=== PATIENT | female | born 1935 | race Hispanic/Latino ===

== ENCOUNTER 2022-01-10 10:03 | Outpatient (CLI) | payer BC | END 2022-01-10 10:04 | disposition home or self-care (01) | LOC: CSHLAB 10:03 | PROVIDERS: ATTEND Surgery | DX: Z20.822 Contact with and (suspected) exposure to COVID-19 (principal) | CPT/HCPCS: 87811 ==

== ENCOUNTER 2022-04-15 13:57 | Outpatient (CLI) | payer MEDICARE, BC | END 2022-04-15 13:58 | disposition home or self-care (01) | LOC: CSHRAD 13:57 | PROVIDERS: ATTEND Specialist | DX: R10.9 Unspecified abdominal pain (principal); K59.00 Constipation, unspecified; R91.8 Other nonspecific abnormal finding of lung field; J90 Pleural effusion, not elsewhere classified | CPT/HCPCS: 74019 ==

== ENCOUNTER 2022-04-16 11:35 | Emergency (ER) | payer MEDICARE, BC ==
[~2022-04-16 11:35] MED LIST: Iopamidol 300 61% 100 ML VIAL FS ONE
[2022-04-16] MEDS ORDERED: Fentanyl 100 MCG/2 ML VIAL ONE (12:17)
[2022-04-16 12:35] LABS: #Basophils 0.1 10x3/uL (0.0-0.2); #Eosinphils 0.6 10x3/uL (0.0-0.5); #Monocytes 0.9 10x3/uL (0.0-1.1); #Neutrophils 7.6 10x3/uL (1.5-8.4); %Basophils 0.5 % (0.0-2.0); %Eosinophils 4.6 % (0.0-6.0); %Lymphocytes 29.6 % (18.0-47.0); %Monocytes 7.1 % (0.0-10.0); Hemoglobin 15.4 g/dL (12.0-15.5); Mean Corpuscular HGB CONC 33.3 g/dL (32.0-36.0); Mean Corpuscular Hemoglobin 28.7 pg (27.0-33.0); Mean Corpuscular Volume 86.4 fl (81.6-98.3); Platelet Count 376 10x3/uL (150-450); RBC Distribution Width 14.7 % (11.5-14.5); Red Blood Cell (RBC) Count 5.36 10x6/uL (3.90-5.03); White Blood Cell (WBC) Count 13.2 10x3/uL (3.5-10.5)
[2022-04-16 12:50] LABS: ALT (SGPT) 12 U/L (8-55); AST (SGOT) 14 U/L (5-34); Alkaline Phosphatase 112 U/L (40-110); Anion Gap 13 mmol/L (10-20); BUN (Urea Nitrogen) 8 mg/dL (9.8-20.1); Bilirubin, Total 0.4 mg/dL (0.2-1.2); Calc. Creatinine Clearance 0 mL/min (70-130); Calcium 9.8 mg/dL (7.8-10.44); Carbon Dioxide 26 mmol/L (23-31); Chloride 105 mmol/L (98-107); Estimated GFR 84; Globulin 2.7 g/dL (2.4-3.5); Glucose 101 mg/dL (83-110); Lipase 16 U/L (8-78); Potassium 3.8 mmol/L (3.5-5.1); Protein, Total 6.7 g/dL (5.8-8.1); Sodium 140 mmol/L (136-145)
[2022-04-16] MEDS ORDERED: GoLYTELY 4,000 ml Bottle PO SCH (14:30)
== END 2022-04-16 14:40 | disposition home or self-care (01) ==
LOC: CSHERS 11:35
DX: R10.13 Epigastric pain (principal); C34.81 Malignant neoplasm of overlapping sites of right bronchus and lung; C91.10 Chronic lymphocytic leukemia of B-cell type not having achieved remission; Z79.899 Other long term (current) drug therapy
CPT/HCPCS: 36415; 74177; 80053; 82248; 83605; 83615; 83690; 84100; 84436; 84443; 84550; 85025; 96374; J3010; Q9967

== ENCOUNTER 2022-06-26 15:31 | Outpatient (CLI) | payer MEDICARE, BC | END 2022-06-26 15:32 | disposition home or self-care (01) | LOC: CSHRAD 15:31 | PROVIDERS: ATTEND Specialist | DX: M89.8X5 Other specified disorders of bone, thigh (principal); M16.12 Unilateral primary osteoarthritis, left hip ==

== ENCOUNTER 2022-12-11 21:20 | Observation (INO) | payer MEDICARE, BC ==
[2022-12-11] MEDS ORDERED: Ondansetron PF 4 MG/2 ML Vial ONE (22:29)
[2022-12-11] MEDS ORDERED: Morphine 4 MG/ML VIAL ONE (22:29)
[2022-12-11 23:17] LABS: #Eosinphils 0.6 10x3/uL (0.0-0.5); #Monocytes 0.2 10x3/uL (0.0-1.1); #Neutrophils 17.1 10x3/uL (1.5-8.4); %Basophils 0.1 % (0.0-2.0); %Eosinophils 3.2 % (0.0-6.0); %Lymphocytes 7.4 % (18.0-47.0); %Monocytes 1.1 % (0.0-10.0); %Neutrophils 87.3 % (40.0-75.0); Hematocrit 30.6 % (34.9-44.5); Hemoglobin 9.8 g/dL (12.0-15.5); Mean Corpuscular Hemoglobin 27.7 pg (27.0-33.0); Mean Corpuscular Volume 86.4 fl (81.6-98.3); Mean Platelet Volume 10.1 fl (7.4-10.4); Platelet Count 199 10x3/uL (150-450); RBC Distribution Width 19.1 % (11.5-14.5); Red Blood Cell (RBC) Count 3.54 10x6/uL (3.90-5.03); White Blood Cell (WBC) Count 19.5 10x3/uL (3.5-10.5)
[2022-12-11 23:27] LABS: Phosphorus 2.6 mg/dL (2.3-4.7)
[2022-12-11 23:29] LABS: ALT (SGPT) 7 U/L (8-55); AST (SGOT) 10 U/L (5-34); Albumin 2.3 g/dL (3.4-4.8); Alkaline Phosphatase 80 U/L (40-110); Anion Gap 9 mmol/L (10-20); BUN (Urea Nitrogen) 17 mg/dL (9.8-20.1); Bilirubin, Total 0.4 mg/dL (0.2-1.2); Calc. Creatinine Clearance 0 mL/min (70-130); Carbon Dioxide 32 mmol/L (23-31); Chloride 101 mmol/L (98-107); Estimated GFR 87; Glucose 114 mg/dL (83-110); Lipase 5 U/L (8-78); Magnesium 1.7 mg/dL (1.6-2.6); Potassium 3.9 mmol/L (3.5-5.1); Protein, Total 4.3 g/dL (5.8-8.1); Sodium 138 mmol/L (136-145)
[2022-12-12] MEDS ORDERED: Ondansetron PF 4 MG/2 ML Vial IVP PRN (03:17)
[2022-12-12] MEDS ORDERED: Bisacodyl 5 MG TAB PO PRN (03:17)
[2022-12-12] MEDS ORDERED: Calcium Carbonate 500 MG ChewTAB PO PRN (03:17)
[2022-12-12] MEDS ORDERED: HYDROcodone/Acetaminophen 5/325 mg Tablet PO PRN (03:17)
[2022-12-12] MEDS ORDERED: Acetaminophen 325 MG TAB PO PRN (03:17)
[2022-12-12] MEDS ORDERED: Sodium Chloride 0.9% 500 ML IV SCH (03:30)
[2022-12-12] MEDS ORDERED: Albumin 25% 100 ML ONE (05:37)
[2022-12-12] MEDS ORDERED: Morphine 2 MG/ML VIAL SLOW IVP PRN (06:40)
[2022-12-12 07:54] LABS: #Eosinphils 0.6 10x3/uL (0.0-0.5); #Monocytes 0.1 10x3/uL (0.0-1.1); #Neutrophils 15.6 10x3/uL (1.5-8.4); %Basophils 0.2 % (0.0-2.0); %Eosinophils 3.4 % (0.0-6.0); %Lymphocytes 7.3 % (18.0-47.0); %Monocytes 0.4 % (0.0-10.0); %Neutrophils 87.6 % (40.0-75.0); Hematocrit 30.5 % (34.9-44.5); Hemoglobin 9.7 g/dL (12.0-15.5); Mean Corpuscular HGB CONC 31.8 g/dL (32.0-36.0); Mean Corpuscular Hemoglobin 27.4 pg (27.0-33.0); Mean Corpuscular Volume 86.2 fl (81.6-98.3); Mean Platelet Volume 9.4 fl (7.4-10.4); Platelet Count 172 10x3/uL (150-450); Red Blood Cell (RBC) Count 3.54 10x6/uL (3.90-5.03); White Blood Cell (WBC) Count 17.9 10x3/uL (3.5-10.5)
[2022-12-12 08:07] LABS: Anion Gap 12 mmol/L (10-20); BUN (Urea Nitrogen) 14 mg/dL (9.8-20.1); Calc. Creatinine Clearance 0 mL/min (70-130); Calcium 8.4 mg/dL (7.8-10.44); Carbon Dioxide 30 mmol/L (23-31); Chloride 101 mmol/L (98-107); Estimated GFR 87; Glucose 82 mg/dL (83-110); Iron 65 ug/dL (50-170); Iron Binding Capacity, Total 89 mcg/dL (265-497); Potassium 3.9 mmol/L (3.5-5.1); Sodium 139 mmol/L (136-145)
[2022-12-12 08:58] VITALS: BMI 19.4
[2022-12-12] MEDS ORDERED: Icosapent Ethyl 1 GM CAPSULE PO SCH (09:00)
[2022-12-12] MEDS ORDERED: Senokot S 8.6-50 MG TAB PO SCH (09:00)
[2022-12-12] MEDS ORDERED: Multivitamin W/ Minerals 1 TAB PO SCH (09:00)
[2022-12-12] MEDS: Albumin 25% 25 GM/100 ML BOT IVPB SCH ×2 (09:22→09:26)
[2022-12-12] MEDS ORDERED: Morphine 4 MG/ML VIAL SLOW IVP SCH (10:00)
[2022-12-12] MEDS ORDERED: Magnesium 2 GM/50 ML(in water) 2 GM in Premix Bag 1 BAG IVPB SCH (10:45)
[2022-12-12] MEDS ORDERED: Dronabinol 2.5 MG CAP PO SCH (13:00)
[2022-12-12 13:40] VITALS: BP 116/66
[2022-12-12] MEDS ORDERED: Famotidine 20 MG TAB PO SCH (21:00)
[2022-12-12] MEDS ORDERED: Melatonin 3 MG TAB PO SCH (21:00)
[2022-12-12] MEDS ORDERED: Pregabalin 75 MG CAP PO SCH (21:00)
[2022-12-13 14:38] LABS: Hematocrit 27.2 % (34.0-46.6); RBC Folate Test Component 967 ng/mL (>498)
== END 2022-12-12 14:56 | disposition home or self-care (01) ==
LOC: CSHERS 21:20 → CSHIMCU 12-12 06:34 → INTOOBSV 12-12 06:34
PROVIDERS: ADMIT Student in an Organized Health Care Education/Training Program; ATTEND Hospitalist
DX: C34.90 Malignant neoplasm of unspecified part of unspecified bronchus or lung (principal); J90 Pleural effusion, not elsewhere classified; K59.00 Constipation, unspecified; E88.09 Other disorders of plasma-protein metabolism, not elsewhere classified; J96.01 Acute respiratory failure with hypoxia; I10 Essential (primary) hypertension; E78.5 Hyperlipidemia, unspecified; D64.9 Anemia, unspecified; R18.8 Other ascites; Z87.891 Personal history of nicotine dependence; Z90.710 Acquired absence of both cervix and uterus; Z90.49 Acquired absence of other specified parts of digestive tract; Z79.899 Other long term (current) drug therapy
CPT/HCPCS: 71250; 74177; 80048; 80053; 82306; 82533; 82607; 82728; 82747; 83540; 83550; 83605; 83690; 83735; 83880; 83970; 84100; 84134; 84484; 85014; 85025 ×2; 93005; 94760; 96375; 96376; 97530 ×2; G0378 ×2; P9047; 93010; 96374; J2270; J2405; J3475; Q0167